=== PATIENT | male | born 1965 | race African-American/Black ===

== ENCOUNTER 2024-11-22 14:57 | Outpatient (RCR) | payer BC, SELFPAY | END 2024-12-14 23:59 | disposition home or self-care (01) | LOC: SCTC 14:57 | PROVIDERS: PCP Family Medicine; Referring Provider Family Medicine; Visit Provider Nurse Practitioner Family | DX: D70.9 Neutropenia, unspecified (principal) | CPT/HCPCS: 99212; G0463 ==

== ENCOUNTER → 2024-12-11 | Outpatient (CLI) | payer BC, SELFPAY ==
--- NOTE | 2024-12-11 10:00 | XR_ITS ---
Examination: Abdomen sonogram, complete Date and time of exam: December 11, 2024 1055 hours INDICATIONS: Diagnosis chronic neutropenia. Technique: Multiple real-time grayscale transabdominal sonographic images of the abdomen have been obtained. Findings: Normal gallbladder Normal common bile duct 0.2 cm Pancreatic head 1.8 cm Aorta not enlarged Liver 13.5 cm smooth contour no focal liver lesions Normal hepatopedal portal venous flow Patent IVC Right kidney 11.9 x 6.5 x 5.7 cm cortex 1.7 cm Left kidney 9.2 x 6.1 x 6.0 cm cortex 2.2 cm No hydronephrosis Spleen 9.4 cm IMPRESSION: Normal gallbladder No abdominal mass
== END | disposition home or self-care (01) ==
LOC: CDIM 10:07
PROVIDERS: PCP Family Medicine; Referring Provider Nurse Practitioner Family; Visit Provider Nurse Practitioner Family
DX: D70.9 Neutropenia, unspecified (principal)
CPT/HCPCS: 76700

== ENCOUNTER → 2025-04-25 | Outpatient (CLI) | payer BC, SELFPAY ==
--- NOTE | 2025-04-25 | XR_ITS ---
Examination: Knee, left , 3 views Technique: Knee AP, lateral, oblique 3 views Date and time of exam: April 25, 2025 1121 hours INDICATIONS: Left knee pain beginning one week ago. FINDINGS: Mild tricompartment osteoarthritis Small knee effusion No fracture Moderate osteopenia IMPRESSION: Mild tricompartment osteoarthritis
== END | disposition home or self-care (01) ==
LOC: CDIM 10:26
PROVIDERS: PCP Family Medicine; Referring Provider Student in an Organized Health Care Education/Training Program; Visit Provider Student in an Organized Health Care Education/Training Program
DX: M17.12 Unilateral primary osteoarthritis, left knee (principal)
CPT/HCPCS: 73562

== ENCOUNTER → 2025-05-08 | Outpatient (CLI) | payer BC, SELFPAY ==
--- NOTE | 2025-05-08 10:00 | XR_ITS ---
Examination: Testicular sonography complete TECHNIQUE: Grayscale sonographic images testes, assessment arterial inflow venous outflow Doppler spectral analysis carful analysis Date and time: May 08, 2025 0958 hours INDICATIONS: Palpable lump right testicle note is beginning 2 weeks ago. FINDINGS: Right testis 4.8 cm epididymis 12 mm Cystic area with debris at the area of the lateral medial to the right testicle in the scrotal sac 3.0 x 1.1 x 3.3 cm Epididymal cysts on the right 6 x 7 mm Left testis 4.6 cm epididymis 11 mm Arterial flow to the testicle. No testicular mass IMPRESSION: No testicular torsion or testicular mass Cystic area with debris in the scrotal sac lateral to the right testicle, at the area of the palpable lumps 3.0 x 1.1 x 3.3 cm, recommend urology consultation
== END | disposition home or self-care (01) ==
LOC: CDIM 09:45
PROVIDERS: PCP Family Medicine; Referring Provider Student in an Organized Health Care Education/Training Program; Visit Provider Student in an Organized Health Care Education/Training Program
DX: N50.3 Cyst of epididymis (principal); D40.10 Neoplasm of uncertain behavior of unspecified testis
CPT/HCPCS: 76870

== ENCOUNTER → 2025-08-15 | Outpatient (BNVA) | payer BC, SELFPAY | END | disposition home or self-care (01) | PROVIDERS: PCP Family Medicine; Referring Provider Family Medicine; Visit Provider Urology | DX: N40.1 Benign prostatic hyperplasia with lower urinary tract symptoms (principal); N13.8 Other obstructive and reflux uropathy; L72.9 Follicular cyst of the skin and subcutaneous tissue, unspecified; R73.03 Prediabetes; Z80.42 Family history of malignant neoplasm of prostate | CPT/HCPCS: 81003; 99212; G0463 ==